=== PATIENT | male | born 1980 | race Caucasian/White ===

== ENCOUNTER 2024-08-21 11:32 | Emergency (ER) | payer SELFPAY ==
[~2024-08-21] VITALS: Ht 167.6 cm; Wt 55.0 kg
[2024-08-21 11:34] VITALS: O2SAT 97
[2024-08-21 11:43] VITALS: BP 103/99; PULSE 66; RESP 16; TEMP 36.9; O2SAT 99
[2024-08-21] MEDS: IBUPROFEN 600MG TABLET PO NR (12:35)
[2024-08-21] MEDS ORDERED: LIDO700A30 TP (13:54)
[2024-08-21] MEDS ORDERED: IBUP-2029 MT (13:54)
== END 2024-08-21 13:58 | disposition home or self-care (01) ==
LOC: ER 11:32
DX: M50.30 Other cervical disc degeneration, unspecified cervical region (principal); J45.909 Unspecified asthma, uncomplicated; I10 Essential (primary) hypertension; Z90.49 Acquired absence of other specified parts of digestive tract
CPT/HCPCS: 72040; 99283